=== PATIENT | female | born 1990 | race Caucasian/White ===

== ENCOUNTER 2020-09-05 11:54 | Emergency (ER) | payer OTHER ==
[2020-09-05] MEDS ORDERED: NORMAL SALINE 1000 ML 1,000 ML IV ONE (13:03)
--- NOTE | 2020-09-05 13:05 | ER Document Report ---
ED Medical Screen (RME) - General Chief Complaint: Lower Abdominal Pain Stated Complaint: Time Seen by Provider: 09/05/20 12:59 Notes: Patient presents 7 weeks . Patient reports some nausea and lower pelvic pain that started today. Patient denies any vaginal bleeding, discharge or urinary symptoms. Patient reports a history of A. fib although does not take any anticoagulants. Patient states she has had a history of tachycardia for which she is prescribed Lopressor although has not had a dose today. Patient very anxious in triage. I have greeted and performed a rapid initial assessment of this patient. A com prehensive ED assessment and evaluation of the patient, analysis of test results and completion of the medical decision making process will be conducted by additional ED providers. Physical Exam - Vital signs Vitals: Temp Pulse Resp BP Pulse Ox 98.3 F 130 H 18 131/89 H 100 09/05/20 12:18 09/05/20 12:18 09/05/20 12:18 09/05/20 12:18 09/05/20 12:18 - Cardiovascular Rhythm: Tachycardia Heart sounds: S1 appreciated, S2 appreciated - Psychological Associated symptoms: Anxious Course - Vital Signs Vital signs: Temp Pulse Resp BP Pulse Ox 98.3 F 130 H 18 131/89 H 100 09/05/20 12:18 09/05/20 12:18 09/05/20 12:18 09/05/20 12:18 09/05/20 12:18
[2020-09-05 13:54] LABS: ABSOLUTE LYMPHOCYTES (AUTO) 2.4 10^3/uL (0.5-4.7); ABSOLUTE MONOCYTES (AUTO) 0.8 10^3/uL (0.1-1.4); ABSOLUTE NEUT (AUTO) 6.6 10^3/uL (1.7-8.2); BASOPHILS % (AUTO) 0.3 % (0-2); EOSINOPHILS % (AUTO) 0.2 % (0-6); HEMATOCRIT 42.2 % (36.0-47.0); HEMOGLOBIN 14.7 g/dL (12.0-15.5); LYMPHOCYTES % (AUTO) 24.5 % (13-45); MEAN CORPUSCULAR HEMOGLOBIN 31.2 pg (27.0-33.4); MEAN CORPUSCULAR HGB CONC 34.9 g/dL (32.0-36.0); MEAN CORPUSCULAR VOLUME 90 fl (80-97); MONOCYTES % (AUTO) 7.7 % (3-13); PLATELET COUNT 333 10^3/uL (150-450); RED BLOOD COUNT 4.71 10^6/uL (3.72-5.28); RED CELL DISTRIBUTION WIDTH 13.6 % (11.5-14.0); SEGMENTED NEUTROPHILS % (AUTO) 67.3 % (42-78); TOTAL CELLS COUNTED % (AUTO) 100 %; WHITE BLOOD COUNT 9.8 10^3/uL (4.0-10.5)
[2020-09-05 13:58] LABS: APPEARANCE,URINE SLIGHTLY-CLOUDY; BILIRUBIN,URINE NEGATIVE (NEGATIVE); COLOR,URINE AMBER; GLUCOSE, URINE NEGATIVE (NEGATIVE); KETONES,URINE 80 mg/dL (NEGATIVE); LEUKOCYTE ESTERASE,URINE NEGATIVE (NEGATIVE); NITRITE,URINE NEGATIVE (NEGATIVE); PROTEIN,URINE 100 mg/dL (NEGATIVE); URINE SPECIFIC GRAVITY 1.032; UROBILINOGEN,URINE NEGATIVE mg/dL (<2.0)
[2020-09-05 14:04] LABS: ALBUMIN 5.2 g/dL (3.5-5.0); ALKALINE PHOSPHATASE 56 U/L (38-126); ANION GAP 16 (5-19); ASPARTATE AMINO TRANSFERASE 21 U/L (14-36); BILIRUBIN,DIRECT 0.2 mg/dL (0.0-0.4); BLOOD UREA NITROGEN 11 mg/dL (7-20); CALCIUM 10.6 mg/dL (8.4-10.2); CARBON DIOXIDE 18 mmol/L (22-30); CHLORIDE 105 mmol/L (98-107); GLUCOSE 72 mg/dL (75-110); POTASSIUM 4.3 mmol/L (3.6-5.0); TOTAL PROTEIN 8.4 g/dL (6.3-8.2)
--- NOTE | 2020-09-05 14:27 | RADIOLOGY REPORT (SQ) ---
EXAM DESCRIPTION: U/S OB TRANSVAGINAL W/O DOP IMAGES COMPLETED DATE/TIME: 09/05/2020 2:10 pm REASON FOR STUDY: pelvic pain COMPARISON: None. TECHNIQUE: Transvaginal static and realtime grayscale images acquired of the pelvis. Additional emilee cted spectral and color Doppler images recorded. All images stored on PACs. bHCG: Pending. CLINICAL DATES: 6 weeks 4 days LIMITATIONS: None. FINDINGS: FETUS: Single Living intrauterine . ULTRASOUND EGA: 6 weeks 0 days ULTRASOUND VANDANA: 05/01/2021 EFW: Not applicable less than 20 weeks. CRL: 3.6 mm FHR: 127 beats per minute. SURVEY: Too early to assess. AMNIOTIC FLUID: Adequate amount. PLACENTA: Not yet developed due to early gestation. SUBCHORIONIC BLEED: Yes. SIZE OF BLEED: 1.6 x 1.1 x 0.6 cm UTERUS: No masses. No anomalies. CERVICAL LENGTH: 3.7 cm Closed. RIGHT ADNEXA: Normal ovary with normal vascular flow. 2.5 cm luteal cyst. No adnexal free fluid. No adnexal masses. LEFT ADNEXA: Normal ovary with normal vascular flow. No adnexal free fluid. No adnexal masses. FREE FLUID: None. OTHER: No other significant finding. IMPRESSION: LIVING INTRAUTERINE . EGA 6 weeks 0 days SUBCHORIONIC BLEED: 1.6 x 1.1 x 0.6 cm Trimester of : First trimester - 0 to 13 weeks. TECHNICAL DOCUMENTATION: JOB ID: [id number] [place]-72 2010 [employer]- All Rights Reserved Reading location - IP/workstation name: [employer]
[2020-09-05] MEDS ORDERED: DEXTROSE 5%-LACTATED RINGERS 1,000 ML IV ONE ×2 (14:50→15:38)
[2020-09-05] MEDS ORDERED: METOCLOPRAMIDE HCL INJ/PF 10 MG/2 ML SDV IV ONE (14:50)
[2020-09-05 15:25] LABS: CHLAM PCR NOT DETECTED (NOT DETECT)
--- NOTE | 2020-09-05 15:25 | ER Document Report ---
Entered by RAYMON RASCON SCRIBE 09/05/20 [id number] Acting as scribe for:HARJINDER SUH MD ED GI/ - General Chief Complaint: Vaginal Pain Stated Complaint: Time Seen by Provider: 09/05/20 12:59 Mode of Arrival: Ambulatory Information source: Patient Notes: This 30 year old female patient presents to the emergency department today with complaints of lower abdominal cramping. Patient is currently , A1 and she reports that her pain is "a cross between menstrual cramps and ovulation pain". She reports that she has had nausea and vomiting for the last week and was prescribed Zofran yesterday. She has been taking vitamins. - Related Data Allergies/Adverse Reactions: peanut Allergy (Verified 09/05/20 13:05) shellfish derived Allergy (Verified 09/05/20 13:05) Past Medical History - General Information source: Patient - Social History Smoking Status: Former Smoker Cigarette use (# per day): No Frequency of alcohol use: None Drug Abuse: None Lives with: Family Family History: Reviewed & Not Pertinent Pulmonary Medical History: Reports: Hx Asthma Musculoskeletal Medical History: Reports Hx Fibromyalgia Past Surgical History: Reports: Hx Orthopedic Surgery - right ankle ORIF Review of Systems - Review of Systems Constitutional: No symptoms reported EENT: No symptoms reported Cardiovascular: No symptoms reported Respiratory: No symptoms reported Gastrointestinal: See HPI, Abdominal pain Genitourinary: No symptoms reported Female Genitourinary: See HPI, Musculoskeletal: No symptoms reported Skin: No symptoms reported Hematologic/Lymphatic: No symptoms reported Neurological/Psychological: No symptoms reported -: Yes All other systems reviewed and negative Physical Exam - Vital signs Vitals: Temp Pulse Resp BP Pulse Ox 98.3 F 130 H 18 131/89 H 100 09/05/20 12:18 09/05/20 12:18 09/05/20 12:18 09/05/20 12:18 09/05/20 12:18 - Notes Notes: Physical Exam: General: Alert, anxious. HEENT: Normocephalic. Atraumatic. PERRL. Extraocular movements intact. Oropharynx clear. Neck: Supple. Non-tender. Respiratory: No respiratory distress. Clear and equal breath sounds bilaterally. Cardiovascular: Regular rate and rhythm. Abdominal: Normal Inspection. Non-tender. No distension. Normal Bowel Sounds. Back: No gross abnormalities. Extremities: Moves all four extremities. Upper extremities: Normal inspection. Normal ROM. Lower extremities: Normal inspection. No edema. Normal ROM. Neurological: Normal cognition. AAOx4. Normal speech. Psychological: Anxious Skin: Warm. Dry. Normal color. Course - Re-evaluation Re-evalutation: 09/05/20 16:39 Patient states her nauseousness is much better with the Zofran. She has had almost 1 L of IV fluid. Unfortunately the bag was hung from the stretcher pole and the patient is sitting up there for the fluid is only inches above her heart. When I discovered this I had a pole placed in the room so the rest of the fluid running quickly, she does not want to wait for additional fluids because she has somewhere she needs to be. The second liter of IV fluid have been ordered over 1 hour ago, obviously was never given. - Vital Signs Vital signs: Temp Pulse Resp BP Pulse Ox 98.3 F 130 H 18 131/89 H 100 09/05/20 12:18 09/05/20 12:18 09/05/20 12:18 09/05/20 12:18 09/05/20 12:18 - Laboratory Results Result Diagrams: 09/05/20 13:30 09/05/20 13:30 Laboratory Results Interpreted: 09/05/20 09/05/20 13:30 13:30 Carbon Dioxide 18 L Glucose 72 L Calcium 10.6 H Total Protein 8.4 H Albumin 5.2 H Beta HCG, Quant 91775.00 H Urine Protein 100 H Urine Ketones 80 H Urine Ascorbic Acid 40 H Critical Laboratory Results Reviewed: Yes Attending or Supervising Physician who Reviewed Labs: HARJINDER SUH - Starvation ketosis - Radiology Results Critical Radiology Results Reviewed: Yes Attending or Supervising Physician who Reviewed Radiology: HARJINDER SUH - 6- week viable IUP small subchorionic bleed - EKG Interpretation by Me EKG shows normal: Sinus rhythm, [place], Intervals, QRS Complexes, ST-T Waves Rate: Tachycardia - 107 Voltage: Consistent with RVH When compared to previous EKG there are: Previous EKG unavailable Discharge - Discharge Clinical Impression: 6 weeks gestation of , Dehydration, Pelvic cramping in antepartum period Subchorionic hemorrhage in first trimester Qualifiers: Fetus number: single or unspecified fetus Qualified Code(s): O41.8X10 - Other specified disorders of amniotic fluid and membranes, first trimester, not applicable or unspecified; O46.8X1 - Other antepartum hemorrhage, first trimester Nausea and vomiting Qualifiers: Vomiting type: unspecified Vomiting Intractability: non-intractable Qualified Code(s): R11.2 - Nausea with vomiting, unspecified Condition: Stable Disposition: HOME, SELF-CARE Additional Instructions: Your ultrasound shows a 6-week 0-day live intrauterine . There is a small subchorionic bleed. Your lab work indicated that you have become dehydrated, this was not likely causing your pelvic cramping. You were given a prescription for Reglan to take for nauseousness if the Zofran does not work. Be sure to drink plenty of fluids and get plenty of rest. You very likely will experience some reddish-brown vaginal bleeding sometime in the next week, that should be of no concern. 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 RETURN TO THE EMERGENCY ROOM IF ANY NEW OR WORSENING SYMPTOMS. Prescriptions: Metoclopramide HCl [Reglan 10 mg Tablet] 10 mg PO ASDIR PRN #15 tablet PRN Reason: Referrals: [facility] [Provider Group] - Follow up as needed I personally performed the services described in the documentation, reviewed and edited the documentation which was dictated to the scribe in my presence, and it accurately records my words and actions.
[2020-09-05 16:53] VITALS: BP 134/75
--- NOTE | 2020-09-05 17:20 | EKG REPORT ---
SEVERITY:- ABNORMAL ECG - ATRIAL FLUTTER/FIBRILLATION, A-RATE 242 CONSIDER RIGHT VENTRICULAR HYPERTROPHY : Confirmed by: Kristine Evans MD 05-Sep-2020 17:19:17
== END 2020-09-05 16:53 | disposition home or self-care (01) ==
LOC: ER 11:54
DX: O26.891 Other specified pregnancy related conditions, first trimester (principal); R10.2 Pelvic and perineal pain; R00.0 Tachycardia, unspecified; O21.9 Vomiting of pregnancy, unspecified; O20.8 Other hemorrhage in early pregnancy; O99.281 Endocrine, nutritional and metabolic diseases complicating pregnancy, first trimester; E86.0 Dehydration; O99.511 Diseases of the respiratory system complicating pregnancy, first trimester; J45.909 Unspecified asthma, uncomplicated; Z79.899 Other long term (current) drug therapy; Z87.891 Personal history of nicotine dependence; Z91.010 Allergy to peanuts; Z91.013 Allergy to seafood; Z3A.01 Less than 8 weeks gestation of pregnancy
CPT/HCPCS: 93005; 99285; 96374; 86900; 86901; 36415; 84702; 85025; 80053; 81001; 87491; 87591; 76817; 93010; J2765; J7121

== ENCOUNTER 2020-10-16 11:31 | Emergency (ER) | payer OTHER ==
[2020-10-16] MEDS ORDERED: DIPHENHYDRAMINE HCL 50 MG/ML VIAL IV ONE ×2 (11:57→15:16)
[2020-10-16] MEDS ORDERED: NORMAL SALINE 1000 ML 1,000 ML IV ONE (11:57)
--- NOTE | 2020-10-16 12:02 | ER Document Report ---
ED Medical Screen (RME) - General Chief Complaint: Vomiting/Diarrhea Stated Complaint: NAUSEA Time Seen by Provider: 10/16/20 11:56 Notes: Patient presents 12 weeks G3, P1. Patient reports nausea vomiting diarrhea. Patient states diarrhea started 3 days ago and vomiting started yesterday. Patient reports vomiting every hour and has had 6 stools today. Patient does report lower abdominal tenderness. Patient has a history of asthma and fibromyalgia. I have greeted and performed a rapid initial assessment of this patient. A comprehensive ED assessment and evaluation of the patient, analysis of test results and completion of the medical decision making process will be conducted by additional ED providers. - Related Data Allergies/Adverse Reactions: peanut Allergy (Verified 10/16/20 11:52) shellfish derived Allergy (Verified 10/16/20 11:52) Home Medications: vitamins, lopressor, singulair Past Medical History - Social History Frequency of alcohol use: None Drug Abuse: None Pulmonary Medical History: Reports: Hx Asthma Musculoskeltal Medical History: Reports Hx Fibromyalgia Past Surgical History: Reports: Hx Orthopedic Surgery - right ankle ORIF Physical Exam - Vital signs Vitals: Temp Pulse Resp BP Pulse Ox 98.5 F 109 H 20 130/68 H 98 10/16/20 11:35 10/16/20 11:35 10/16/20 11:35 10/16/20 11:35 10/16/20 11:35 - General General appearance: Appears well, Alert - Abdominal Tenderness: Tender - Lower pelvic Course - Vital Signs Vital signs: Temp Pulse Resp BP Pulse Ox 98.5 F 109 H 20 130/68 H 98 10/16/20 11:35 10/16/20 11:35 10/16/20 11:35 10/16/20 11:35 10/16/20 11:35
[2020-10-16 13:11] LABS: APPEARANCE,URINE SLIGHTLY-CLOUDY; BILIRUBIN,URINE NEGATIVE (NEGATIVE); COLOR,URINE YELLOW; GLUCOSE, URINE NEGATIVE (NEGATIVE); KETONES,URINE 80 mg/dL (NEGATIVE); LEUKOCYTE ESTERASE,URINE NEGATIVE (NEGATIVE); NITRITE,URINE NEGATIVE (NEGATIVE); PROTEIN,URINE 100 mg/dL (NEGATIVE); URINE SPECIFIC GRAVITY 1.032; UROBILINOGEN,URINE NEGATIVE mg/dL (<2.0)
[2020-10-16] MEDS ORDERED: MAG HYDROX/AL HYDROX/SIMETH SUSP 30 ML UDCUP PO ONE (13:19)
[2020-10-16] MEDS ORDERED: LIDOCAINE 2% VISCOUS SOLN 15 ML UDCUP PO ONE (13:19)
--- NOTE | 2020-10-16 13:35 | RADIOLOGY REPORT (SQ) ---
EXAM DESCRIPTION: U/S [id number] TRNABD 1GES W/ODOP IMAGES COMPLETED DATE/TIME: 10/16/2020 1:01 pm REASON FOR STUDY: pelvic pain COMPARISON: 09/05/2020 TECHNIQUE: Transabdominal static and realtime grayscale images acquired of the pelvis. Additional se lected spectral and color Doppler images recorded. All images stored on PACs. bHCG: Not applicable. CLINICAL DATES: LMP 07/21/2020 12 weeks 3 days. LIMITATIONS: None. FINDINGS: FETUS: Single Living intrauterine . ULTRASOUND EGA: 13 weeks 2 days ULTRASOUND VANDANA: 04/21/2021 EFW: Not applicable less than 20 weeks. CRL: 7.1 cm FHR: 158 beats per minute. SURVEY: Too early to assess. AMNIOTIC FLUID: Adequate amount. PLACENTA: Not yet developed due to early gestation. SUBCHORIONIC BLEED: No SIZE OF BLEED: Not applicable. UTERUS: No masses. No anomalies. CERVICAL LENGTH: 3.8 cm. Closed. RIGHT ADNEXA: Ovary not seen. No adnexal free fluid. No adnexal masses. LEFT ADNEXA: Normal ovary with normal vascular flow. 3.3 x 2.8 x 2.6 cm. No adnexal free fluid. No adnexal masses. FREE FLUID: None. OTHER: There is a 2.8 x 2.1 x 2.4 cm heterogeneous complex area adjacent to the gestational sac. Thi s is present on the prior study, is perhaps slightly larger, but does not otherwise appear significan tly changed. IMPRESSION: 1. Living intrauterine gestation of 13 weeks 2 days. 2. There is a small heterogeneous complex area adjacent to the gestational sac that was present on t he previous study and felt to represent a small subchorionic bleed at that time. However, the persis tence would not be expected from a subchorionic bleed. Is possible this could represent a fibroid. Trimester of : Second trimester - 13 weeks 1 day to 27 weeks 6 days. TECHNICAL DOCUMENTATION: JOB ID: [id number] [employer]- All Rights Reserved rev Reading location - IP/workstation name: [email or web address]
[2020-10-16 13:47] LABS: ABSOLUTE LYMPHOCYTES (AUTO) 1.4 10^3/uL (0.5-4.7); ABSOLUTE MONOCYTES (AUTO) 0.5 10^3/uL (0.1-1.4); ABSOLUTE NEUT (AUTO) 7.7 10^3/uL (1.7-8.2); BASOPHILS % (AUTO) 0.5 % (0-2); EOSINOPHILS % (AUTO) 0.2 % (0-6); HEMATOCRIT 37.4 % (36.0-47.0); HEMOGLOBIN 12.9 g/dL (12.0-15.5); LYMPHOCYTES % (AUTO) 14.4 % (13-45); MEAN CORPUSCULAR HEMOGLOBIN 31.1 pg (27.0-33.4); MEAN CORPUSCULAR HGB CONC 34.4 g/dL (32.0-36.0); MEAN CORPUSCULAR VOLUME 91 fl (80-97); MONOCYTES % (AUTO) 5.4 % (3-13); PLATELET COUNT 369 10^3/uL (150-450); RED BLOOD COUNT 4.13 10^6/uL (3.72-5.28); RED CELL DISTRIBUTION WIDTH 13.3 % (11.5-14.0); SEGMENTED NEUTROPHILS % (AUTO) 79.5 % (42-78); TOTAL CELLS COUNTED % (AUTO) 100 %; WHITE BLOOD COUNT 9.7 10^3/uL (4.0-10.5)
[2020-10-16 14:08] LABS: ALBUMIN 4.5 g/dL (3.5-5.0); ALKALINE PHOSPHATASE 50 U/L (38-126); ANION GAP 11 (5-19); ASPARTATE AMINO TRANSFERASE 24 U/L (14-36); BILIRUBIN,DIRECT 0.3 mg/dL (0.0-0.4); BILIRUBIN,TOTAL 0.6 mg/dL (0.2-1.3); BLOOD UREA NITROGEN 10 mg/dL (7-20); CALCIUM 10.2 mg/dL (8.4-10.2); CARBON DIOXIDE 21 mmol/L (22-30); CHLORIDE 104 mmol/L (98-107); GLUCOSE 78 mg/dL (75-110); POTASSIUM 4.6 mmol/L (3.6-5.0); TOTAL PROTEIN 7.6 g/dL (6.3-8.2)
[2020-10-16] MEDS ORDERED: METOCLOPRAMIDE HCL INJ/PF 10 MG/2 ML SDV IV ONE (14:16)
[2020-10-16] MEDS ORDERED: DEXTROSE 5%-LACTATED RINGERS 1,000 ML IV ONE (14:16)
--- NOTE | 2020-10-16 14:16 | ER Document Report ---
Entered by MONA OROURKE SCRIBE 10/16/20 1248 Acting as scribe for:HARJINDER SUH MD ED GI/ - General Chief Complaint: Vomiting/Diarrhea Stated Complaint: NAUSEA Time Seen by Provider: 10/16/20 11:56 Mode of Arrival: Ambulatory Information source: Patient Notes: This 30 year old female patient, A1, currently x12.5 weeks gestation presents to the ED today with complaints of nausea, vomiting, and diarrhea that started x3 days ago. She reports associated abdominal and esophageal pain due to the vomiting. Denies any sick contacts. - Related Data Allergies/Adverse Reactions: peanut Allergy (Verified 10/16/20 11:52) shellfish derived Allergy (Verified 10/16/20 11:52) metoclopramide [From Reglan] Adverse Reaction (Verified 10/16/20 14:42) Home Medications: vitamins, lopressor, singulair Past Medical History - General Information source: Patient, [facility] Records - Social History Smoking Status: Former Smoker Cigarette use (# per day): No Chew tobacco use (# tins/day): No Smoking Education Provided: No Frequency of alcohol use: None Drug Abuse: None Lives with: Spouse/Significant other Family History: Reviewed & Not Pertinent Patient has homicidal ideation: No Pulmonary Medical History: Reports: Hx Asthma Musculoskeletal Medical History: Reports Hx Fibromyalgia Past Surgical History: Reports: Hx Orthopedic Surgery - right ankle ORIF Review of Systems - Review of Systems Constitutional: No symptoms reported EENT: See HPI, Throat pain Cardiovascular: No symptoms reported Respiratory: No symptoms reported Gastrointestinal: See HPI, Abdominal pain, Diarrhea, Nausea, Vomiting Genitourinary: No symptoms reported Female Genitourinary: See HPI, Musculoskeletal: No symptoms reported Skin: No symptoms reported Hematologic/Lymphatic: No symptoms reported Neurological/Psychological: No symptoms reported -: Yes All other systems reviewed and negative Physical Exam - Vital signs Vitals: Temp Pulse Resp BP Pulse Ox 98.5 F 109 H 20 130/68 H 98 10/16/20 11:35 10/16/20 11:35 10/16/20 11:35 10/16/20 11:35 10/16/20 11:35 - General General appearance: Appears well, Alert In distress: None - HEENT Head: Normocephalic, Atraumatic Eyes: Normal Pupils: PERRL - Respiratory Respiratory status: No respiratory distress Chest status: Nontender Breath sounds: Normal Chest palpation: Normal - Cardiovascular Rhythm: Regular Heart sounds: Normal auscultation Murmur: No - Abdominal Inspection: Normal Distension: No distension Bowel sounds: Normal Tenderness: Tender - Epigastric tenderness to palpation. Abdomen soft. Organomegaly: No organomegaly - Back Back: Normal, Nontender - Extremities General upper extremity: Normal inspection General lower extremity: Normal inspection. No: Edema - Neurological Neuro grossly intact: Yes Simran Coma Scale Eye Opening: Spontaneous [place] Coma Scale Verbal: Oriented [place] Coma Scale Motor: Obeys Commands Simran Coma Scale Total: 15 - Psychological Associated symptoms: Normal affect, Normal mood - Skin Skin Temperature: Warm Skin Moisture: Dry Skin Color: Normal Course - Re-evaluation Re-evalutation: 10/16/20 15:32 Patient states that Reglan causes her to vomit even when she takes it for nausea she will violently vomit soon afterwards. She prefers to get Zofran. I did discuss the reported defect problems that have been associated with Zofran, she still prefers to get the Zofran. - Vital Signs Vital signs: Temp Pulse Resp BP Pulse Ox 98.5 F 109 H 20 130/68 H 98 10/16/20 11:35 10/16/20 11:35 10/16/20 11:35 10/16/20 11:35 10/16/20 11:35 - Laboratory Results Result Diagrams: 10/16/20 13:35 10/16/20 13:35 Laboratory Results Interpreted: 10/16/20 10/16/20 10/16/20 12:38 13:35 13:35 Seg Neutrophils % 79.5 H Sodium 136.1 L Carbon Dioxide 21 L Creatinine 0.49 L Urine Protein 100 H Urine Ketones 80 H Urine Ascorbic Acid 40 H Critical Laboratory Results Reviewed: No Critical Results - Radiology Results Critical Radiology Results Reviewed: No Critical Results Discharge - Discharge Clinical Impression: Nausea, vomiting and diarrhea, with 12 completed weeks gestation, Dehydration Condition: Stable Disposition: HOME, SELF-CARE Additional Instructions: Gastroenteritis: You most likely have gastroenteritis. This is an irritation of the stomach and intestinal tract. It's usually caused by a virus, but can also be caused by bacteria, toxins that cause food poisoning, or excessive alcohol intake. Symptoms may include fever, painful abdominal cramps, nausea, vomiting, and diarrhea. Start with small amounts (two to six ounces) of clear liquids (soft drinks, herb teas, broth, etc). Try to take fluids frequently even if you are vomiting, to prevent dehydration. When liquids are being consumed successfully, advance to small amounts of bland food (mashed potato, toast) for 6 - 12 hours. Gastroenteritis rarely requires medication. It goes away by itself. Use good handwashing so you don't spread germs. Wash underwear in very hot water. If symptoms are severe, talk to the doctor. Call your physician if blood appears in your vomitus or stool, if vomiting lasts longer than 24 hours, if the abdominal pain worsens or becomes localized to one area, or if you develop high fever. You most likely have gastroenteritis, rather than nausea vomiting from , because of the diarrhea involved. You stated you prefer to get Zofran for your nausea and vomiting knowing the reported risks during . Take the Zofran as prescribed for nausea. Drink plenty of cool clear liquids. Get plenty of rest. 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 RETURN TO THE EMERGENCY ROOM IF ANY NEW OR WORSENING SYMPTOMS. Prescriptions: Ondansetron [Zofran Odt 4 mg Tablet] 1 - 2 tab PO Q4H PRN #20 tab.rapdis PRN Reason: I personally performed the services described in the documentation, reviewed and edited the documentation which was dictated to the scribe in my presence, and it accurately records my words and actions.
[2020-10-16] MEDS ORDERED: ONDANSETRON HCL INJ/PF 4 MG/2 ML SDV IV ONE (15:24)
[2020-10-16 16:25] VITALS: BP 127/74
== END 2020-10-16 16:25 | disposition home or self-care (01) ==
LOC: ER 11:31
DX: O21.8 Other vomiting complicating pregnancy (principal); E86.0 Dehydration; R19.7 Diarrhea, unspecified; Z3A.12 12 weeks gestation of pregnancy
CPT/HCPCS: 99285; 96361; 96374; 96375; 36415; 83690; 85025; 80053; 81001; 76801; J1200; J3490; J2405; J7121; J7030